=== PATIENT | male | born 1980 | race Caucasian/White ===

== ENCOUNTER → 2021-07-09 | Outpatient (CLI) | payer BC ==
[~2021-07-09] MED LIST: PERFLUTREN PROTEIN-A MICROSPHR 0.22 MG/ML 3 ML VIAL. IV ONE
--- NOTE | 2021-07-09 16:06 | CARD ---
MR#: [id number] Date of Study: 07/09/2021 Ordering Physician: ADAN ESCOBAR, Referring Physician: ADAN ESCOBAR, Tech: APPROVED REPORT INDICATION Chest Pain RISK FACTORS Hypertension Hyperlipidemia PROCEDURE The patient underwent an Exercise Stress Test using the Beau Protocol. Blood pressure, heart rate, a nd EKG were monitored. An Echocardiogram was performed by health technician in four stages in quad fashion. At peak stress four se lected images were obtained and placed side by side with resting images for comparison. Test Type: Exercise Stress Nurse/Tech: Katherine Rodriguez R.N. Test Indications: chest pain Cardiac History and Allergies: htn, high chol Medications: lisinopril, lisinopril/hctz, metoprolol ER Resting ECG: sr Resting Heart Rate: 83 bpm Resting Blood Pressure: 140/80mmHg Pretest Chest Pain: No chest pain Nurse/Tech Notes lungs cta, heart tones regular Stress Symptoms No chest pain or symptoms. POST EXERCISE Reason for Termination: Reached target heart rate Target HR: Yes Max HR: 160 bpm 89% of Maximum Predicted HR: 179 bpm Exercise duration: 6:03 min:sec, 2 Stage Exercise capacity: 7.0METs Max Blood Pressure: 179/89mmHg Blood Pressure response to exercise: Normal blood pressure response during stress. Chest Pain: No. Arrhythmia: Yes. small run of bigimeny noted during first stage ST Change: Yes. minor ST depression noted in mult leads, difficult to assess with movement from exerc ise <Conclusion> Technically very difficult study - Contrast enhancement used. No evidence of stress induced EKG changes. Average exercise capacity with 7 Mets achieved. Normal EF and grossly normal wall motion at rest. EF 55% Normal EF and grossly normal wall motion at peak stress. EF 70% Overall, low risk study. Signed by : Adan Escobar, Electronically Approved : 07/09/2021 16:05:57
== END ==
LOC: ECHO 12:25
PROVIDERS: ATTEND Internal Medicine Cardiovascular Disease
DX: R07.9 Chest pain, unspecified (principal)
CPT/HCPCS: 93017; 93350; Q9956